=== PATIENT | male | born 1945 | race Caucasian/White ===

== ENCOUNTER 2024-09-30 22:57 | Emergency (ER) | payer OTHER ==
--- NOTE | 2024-09-30 23:17 | ER ---
Nurse's Notes [facility] Name: Luke Dale Age: 78 yrs Sex: Male : 1945 Arrival Date: 09/30/2024 Time: 22:57 Bed Waiting Private MD: Diagnosis: Presentation: 09/30 23:12 Chief complaint: Patient states: I am having left lower abd pain for about 24 hrs. bm8 Coronavirus screen: At this time, the client does not indicate any symptoms associated with coronavirus-19. Ebola Screen: No symptoms or risks identified at this time. Initial Sepsis Screen: Does the patient meet any 2 criteria? No. Patient's initial sepsis screen is negative. Does the patient have a suspected source of infection? No. Patient's initial sepsis screen is negative. Risk Assessment: Do you want to hurt yourself or someone else? Patient reports no desire to harm self or others. Onset of symptoms was September 29, 2024 at 22:00. 23:12 Method Of Arrival: Ambulatory bm8 23:12 Acuity: JENNIFER 3 bm8 Triage Assessment: 23:14 General: Appears in no apparent distress. comfortable, Behavior is calm, cooperative, bm8 appropriate for age. Pain: Complains of pain in left lower quadrant Pain currently is 6 out of 10 on a pain scale. GI: Abdomen is round non-distended, Bowel sounds present X 4 quads. Abdomen is tender to palpation in left lower quadrant Reports lower abdominal pain. Historical: - Allergies: 23:14 No Known Allergies; bm8 - PMHx: 23:14 Diabetes - IDDM; Hypertension; stage 3 kidney failure (Hypertension); bm8 - Immunization history:: Adult Immunizations up to date. - Infectious Disease History:: Denies. - Social history:: Smoking status: Patient denies any tobacco usage or history of. Screenin:16 [facility] ED Fall Risk Assessment (Adult) History of falling in the last 3 months, bm8 including since admission No falls in past 3 months (0 pts) Confusion or Disorientation No (0 pts) Intoxicated or Sedated No (0 pts) Impaired Gait No (0 pts) Mobility Assist Device Used No (0 pt) Altered Elimination No (0 pt) Score/Fall Risk Level 0 - 2 = Low Risk Oriented to surroundings, Maintained a safe environment, Educated pt \T\ family on fall prevention, incl call for assistance when getting out of bed, Assessed \T\ reinforced patient's understanding of fall precautions, Hourly rounding (assess needs \T\ fall precautionary measures) done, Used ambulatory aids as needed (educated on \T\ assisted with), Used gait belt as appropriate. Abuse screen: Denies threats or abuse. Nutritional screening: No deficits noted. Tuberculosis screening: No symptoms or risk factors identified. Assessment: 23:16 Reassessment: PT left before he could be roomed. bm8 Vital Signs: 23:14 bm8 23:14 declined bm8 Isha Coma Score: 23:16 Eye Response: spontaneous(4). Motor Response: obeys commands(6). Verbal Response: bm8 oriented(5). Total: 15. ED Course: 23:03 Patient arrived in ED. mr 23:07 Todd Osorio MD is Attending Physician. rt 23:14 Triage completed. bm8 23:14 Arm band placed on right wrist. EKG completed in triage. Results shown to MD. bm8 23:16 Patient has correct armband on for positive identification. Provided Education on: none bm8 provided , pt elooped. 23:16 No provider procedures requiring assistance completed. Patient did not have IV access bm8 during this emergency room visit. Administered Medications: No medications were administered Medication: 23:16 VIS not applicable for this client. bm8 Outcome: 23:16 Eloped from waiting room, before seeing physician bm8 23:16 Condition: stable 23:16 Discharge instructions given to no instructions given, pt eloped 23:17 Patient left the ED. bm8 23:34 Patient left the ED. lg3 Signatures: Felicia Gaytan, Reg Reg mr Delicia Meehan, RN RN lg3 Todd Osorio MD MD rt Preston Carlos RN RN bm8 Corrections: (The following items were deleted from the chart) 10/01 00:13 01/ 23:16 Reassessment: pt explained that he would need CT imaging and it was bm8 currently unavailable here. Pt decided to leave and go to another hospital. bm8
== END 2024-09-30 23:34 | disposition left against medical advice (07) ==
LOC: ER 22:57
DX: R10.32 Left lower quadrant pain (principal); E11.9 Type 2 diabetes mellitus without complications; I10 Essential (primary) hypertension; N18.30 Chronic kidney disease, stage 3 unspecified; Z53.21 Procedure and treatment not carried out due to patient leaving prior to being seen by health care provider
CPT/HCPCS: 99283